=== PATIENT | female | born 1975 | race Hispanic/Latino ===

== ENCOUNTER 2021-02-18 08:58 | Emergency (ER) | payer OTHER ==
[~2021-02-18] VITALS: Ht 157.5 cm; Wt 89.9 kg
[2021-02-18] MEDS ORDERED: KETOROLAC TROMETHAMINE 60 MG/2 ML VIAL IM ONE (09:15)
[2021-02-18] MEDS ORDERED: ONDANSETRON HCL 4 MG ORAL DISINTEGRATING TAB PO STA (09:53)
[2021-02-18] MEDS ORDERED: HYDROCODONE/APAP 10MG-325MG TAB PO STA (09:53)
[2021-02-18] MEDS ORDERED: HYDROCODONE/APAP 5MG-325MG TAB ONE (10:25)
[2021-02-18] MEDS ORDERED: PREDNISONE20 MG PO (10:43)
[2021-02-18] MEDS ORDERED: HYDROCODON-ACE1 EA11 PO (10:43)
[2021-02-18] MEDS ORDERED: ONDANSETRON ODT4 MG PO (10:43)
[2021-02-18] MEDS ORDERED: CIPRO500 MG PO (10:43)
== END 2021-02-18 10:58 | disposition home or self-care (01) ==
LOC: FSED 09:03
DX: M54.42 Lumbago with sciatica, left side (principal); N39.0 Urinary tract infection, site not specified; R50.9 Fever, unspecified
CPT/HCPCS: 74176; 81003; 96372; 99284; J1885